=== PATIENT | female | born 1985 | race Caucasian/White ===

== ENCOUNTER 2023-03-26 16:51 | Day surgery (SDC) | payer OTHER ==
[2023-03-26] VITALS (9 sets, daily range): BP systolic 121–160; BP diastolic 64–96; PULSE 83–101; TEMP 97.4–98.4
[~2023-03-26 16:51] MED LIST: EUTHYROX25 MCG PO; IBU600 MG PO; TOPROL XL 50MG50 MG PO; VIVLODEX5 MG PO
[2023-03-26] MEDS ORDERED: NORCO 325 MG-51 TAB PO (19:00)
--- NOTE | 2023-03-26 23:03 | NUR ---
Patient arrived to medical unit from PACU at approximately 2016. Reported level 3 pain to left shoulder. Was on oxygen at 1 L/min via [place], decreased to 0.5 L/min, and weaned off oxygen at approximately 2114. Able to urinate, and eat. Patient met discharge criteria. Went over discharge paperwork at 2211, and sent home with home med pack of [employer]. All questions anwered. Voiced no questions, needs, or concerns. IV taken out to left AC. Patient changed, and assisted out of hospital with [facility] staff member via wheelchair at 2229 . transported patient.
--- NOTE | 2023-03-26 23:13 | NUR ---
Patient had two active acounts for this hospitalization. Some documentation completed under her other chart: [id number].
== END 2023-03-26 22:30 | disposition home or self-care (01) ==
LOC: SDCO 16:51 → MEDICAL 16:52 → SDCO 16:52 → MEDICAL 16:53 → SDCO 18:15
DX: N20.1 Calculus of ureter (principal)
CPT/HCPCS: OP; C1769; Q9967

== ENCOUNTER 2023-03-28 03:16 | Emergency (ER) | payer OTHER ==
[~2023-03-28] VITALS: Ht 162.6 cm; Wt 180.9 kg
[~2023-03-28 03:16] MED LIST changes: +NORCO 325 MG-51 TAB PO
[2023-03-28 03:22] VITALS: TEMP 98.1
[2023-03-28 03:47] LABS: BASO % 0.3 % (0.0-2.0); EOS # 0.1 K/mm3 (0.0-0.7); EOS % 0.5 % (0.0-4.0); GRAN # 6.2 K/mm3 (1.4-6.5); GRAN % 58.4 % (42.2-75.2); HEMATOCRIT 44.9 % (37.0-47.0); HEMOGLOBIN 14.9 g/dl (12.5-16.0); LYMPH # 3.6 K/mm3 (1.2-3.4); LYMPH % 33.6 % (20.0-51.0); MEAN CELL VOLUME 99 fl (80.0-100.0); MEAN CORPUSCULAR HEMOGLOBIN 33 pg (27-31); MEAN CORPUSCULAR HGB CONC 33 g/dl (33.0-37.0); MEAN PLATELET VOLUME 9.5 fl (7.4-10.4); MONO # 0.7 K/mm3 (0.1-0.6); MONO % 6.8 % (1.7-9.3); PLATELET COUNT 232 K/mm3 (130-400); RED BLOOD COUNT 4.55 M/mm3 (4.10-5.30); REDCELL DISTRIBUTION WIDTH-CV 12.3 % (11.5-14.5)
[2023-03-28 03:52] LABS: COLLECTION METHOD CLEAN CATCH
[2023-03-28 04:03] LABS: BILIRUBIN,TOTAL 0.6 mg/dL (0.2-1.2); CALCIUM 9.9 mg/dL (8.4-10.2); CREATININE, serum 1.01 mg/dL (0.57-1.11); POTASSIUM 3.3 mmol/L (3.5-4.5); TOTAL PROTEIN 7.5 gm/dL (6.2-8.1)
[2023-03-28 04:04] LABS: URINE APPEARANCE Clear (CLEAR/HAZY); URINE BLOOD 2+ (NEGATIVE); URINE COLOR Yellow (YELLOW); URINE GLUCOSE Negative (NEGATIVE); URINE KETONE Negative (NEGATIVE); URINE NITRATE Negative (NEGATIVE); URINE PROTEIN(semi-quant) 2+ (NEGATIVE); URINE UROBILINOGEN 0.2 E.U/dL (0.2-1.0)
[2023-03-28 04:05] LABS: URINE BACTERIA Rare /hpf (NONE SEEN)
[2023-03-28] MEDS ORDERED: ZOFRAN ODT4 MG PO (05:04)
[2023-03-28 05:10] VITALS: BP 160/111; PULSE 98
== END 2023-03-28 05:10 | disposition home or self-care (01) ==
LOC: COL.ER 03:16
PROVIDERS: Emergency Medicine
DX: N20.1 Calculus of ureter (principal); R94.5 Abnormal results of liver function studies; E66.9 Obesity, unspecified; Z68.44 Body mass index [BMI] 60.0-69.9, adult
CPT/HCPCS: J1885; J2270; J2405; J7030